=== PATIENT | female | born 1955 ===

== ENCOUNTER → 2025-05-18 12:48 | Outpatient (BNVA) | payer MEDICARE, MEDICAID, SELFPAY | PROVIDERS: PCP Family Medicine; Referring Provider Family Medicine; Visit Provider Internal Medicine Pulmonary Disease | DX: J44.9 Chronic obstructive pulmonary disease, unspecified (principal); G47.33 Obstructive sleep apnea (adult) (pediatric); F17.210 Nicotine dependence, cigarettes, uncomplicated | CPT/HCPCS: 99205; 36415 ==

== ENCOUNTER 2025-05-18 14:47 | Outpatient (REF) | payer MEDICARE, MEDICAID, SELFPAY ==
[2025-05-18 16:38] LABS: Abs Immature Grans 0.01 10^3/uL (0.0-0.06); HCT 45.5 % (36.0-46.0); HGB 15.8 g/dL (11.2-15.7); Immature Grans % 0.1 %; MCH 33.8 pg (27.0-33.0); MCHC 34.7 % (32.0-36.0); MCV 97 fL (80-95); MPV 9.8 fL (8.0-11.0); Platelet Count 345 10^3/uL (130-400); RBC 4.67 10^6/uL (3.93-5.22); RDW 13.7 % (11.7-14.6); RDW-SD 49.7 fL; WBC 10.00 10^3/uL (4.4-10.8)
== END 2025-05-18 14:48 | disposition home or self-care (01) ==
LOC: LBN 14:47
PROVIDERS: PCP Family Medicine; Visit Provider Internal Medicine Pulmonary Disease
DX: J44.9 Chronic obstructive pulmonary disease, unspecified (principal)
CPT/HCPCS: 85025